=== PATIENT | male | born 1935 | race Caucasian/White ===

== ENCOUNTER → 2016-06-22 | Day surgery (SDC) | payer MEDICARE ==
--- NOTE | 2016-06-18 17:53 | TH ---
cc: DEMI LUCIO M.D. DATE 06/18/16 PROCEDURE TO BE PERFORMED Excision squamous cell carcinoma located on the left posterior ear with tissue arrangement and the correction of the lower eyelid laxity with a canthopexy, canthotomy and canthoplasty. 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 He had an aggressive resection back in September of last year, although we had a positive margin we were very conservatively watching until this finally appeared. Since then, the patient had a stroke and had developed significant laxity in the lower eyelid to the point that the cornea now has been ___ exposed. PAST MEDICAL HISTORY 1. Cardiomyopathy status post open heart surgery in 2014 2. Appendectomy at the time MEDICATIONS 1. Allopurinol 2. Loratadine 3. The patient has been off of coumadin. She is on alternative Lovenox 4. 5. Lasix 6. Gabapentin 7. Spiriva 8. Advair 9. Multivitamins 10. Famotidine 11. Aspirin. REVIEW OF SYSTEMS Otherwise unremarkable and noncontributory. PHYSICAL EXAMINATION CONSTITUTIONAL: General appearance. The patient is a well-developed in no acute distress. Body habitus is within normal limits. There appear to be no deformities. Appears to have attention to grooming. HEENT: The patient does have significant laxity in the left lower eyelid with significant canthal pull. The posterior ear the lower third shows about 1.5 centimeters to 2 centimeters squamous cell carcinoma. Eyes Conjunctivae and lids are within normal anatomical limits. The pupils are reactive to light and accommodation, size, and symmetry. There is no evidence of exudate, hemorrhage, or vessel change. Ears, mouth, nose, and throat The external inspection of the ears and nose fails to demonstrate any pathology, scars, lesions, or masses. Nasal mucosa, septum, and turbinates appear to be well hydrated as well as the lips and gums. No evidence of masses in the hypopharynx or submental area. RESPIRATORY: The patient shows no evidence of intercostal refractions. Otherwise, lungs are clear to auscultation without any abnormal sounds or rubs. CARDIOVASCULAR: The patient has a normal heart rate and rhythm. There is no evidence of noticed carotid bruits. Femoral pulses and pedal pulses in extremities are also within normal limits. GASTROINTESTINAL/ABDOMEN: Soft with no evidence of masses or tenderness. Unable to palpate the liver or spleen. No evidence of hernia. MUSCULOSKELETAL: Appears to be reasonable range of motion on the head, neck, spine, ribs, pelvis, right upper extremity, left upper extremity, right lower extremity, and left lower extremity. The muscle strength and tone appears to be equal and within accepted limits. SKIN: There is no rashes, lesions, or ulcers on the trunk, back, and extremities. NEUROLOGICAL: Examination is grossly normal. PSYCHIATRIC: The patient appears to have good orientation of time, place, and person. Does not appear to have any mood effects of depression, anxiety, or agitation. PLAN To do an excision, frozen section, flap construction and also a canthotomy, cantholysis and probably resection of the lower canthal with a canthopexy. MD LELO Wang/ /3:48 PM /5:29 PM
[~2016-06-22] MED LIST: ACETAMINOPHEN 1000 MG/100 ML VIAL IV ONE; ACETAMINOPHEN/HYDROcodone 325 MG/5 MG TAB ONE; BALANCED SALT SOLN OPHT IRRIG 15 ML BTL ONE; BUPIVACAINE/EPINEPHRINE 0.25% PF 30 ML VIAL ONE; LACTATED RINGER'S 1000 ML INJ 1,000 ML ONE; LIDOCAINE 1%/EPINEPHrine 1:100,000 SOLN 20 ML VIAL ONE; MIDAZOLAM HCL 2 MG/2 ML VIAL ONE; NEOMYCIN/POLYMYXIN/BACITRACIN OINT 15 GM TUBE ONE; NEOMYCIN/POLYMYXIN/HYDROCORT OTIC SUSP 10 ML BTL ONE; PROPOFOL 200 MG/20 ML AMP IV ONE; ceFAZolin INJ 1,000 MG VIAL ONE
--- NOTE | 2016-06-22 13:32 | TN ---
cc: RUI ZACARIAS M.D. DATE OF SURGERY 06/22/2016 PREOPERATIVE DIAGNOSES 1. Squamous cell carcinoma, located on posterior aspect of the left ear. 2. Ptotic lower eyelid, significant laxity, scleral show, irritation. PROCEDURE 1. Excision of squamous cell carcinoma located in the posterior ear, required frozen section with further 12 o'clock positive margins which required a kev-resection of the ear, dissection of part of the parotid tail, dissection of significant soft tissue with a primary defect of 5 x 3 cm. This required a myocutaneous flap reconstruction, secondary defect of the 11 x 5 cm. 2. Lateral canthotomy, wedge resection of laxity, tarsal strip canthopexy with placement of a submuscular AlloDerm 2 x 0.5 cm support strip. SURGEON Rui Zacarias MD ANESTHESIA LMA general plus a total of 60 cc of 1% lidocaine with epinephrine. ESTIMATED BLOOD LOSS Minimal. COMPLICATIONS None. OUTSIDE CUTTER HAND Soheila Swenson, MS III OPERATIVE PROCEDURE After proper consent, the area was properly anesthetized and the skin sterilized with Microcyn and sterile draping was applied. Attention was directed to the posterior aspect of the ear where this lesion had now occupied the posterior ear [id number] and kev-auriculectomy had to be performed. I also performed resection of the tail of the parotid and significant soft tissue. Frozen section was inconclusive in a way that there were some positive margins. Further margins were sent for permanent section. It is to be mentioned that we found a cystic area of about 2 cm inferomedial to the ear area where the sac was properly removed. There was a defect of 3 x 5 cm. With the base of this defect and the involvement of the external auricular canal, a myocutaneous flap reconstruction was elevated and rotated into the defect for a second defect of 11 x 5 cm. The area that we used was de-epithelialized. I utilized 2-0 Monocryl suture of 3-0 Prolene to close the donor site and to inset the flap 4-0 chromic suture and 5-0 fast-absorbing gut. The rest of the tissue appeared to be viable and healthy. From there our attention was directed to the lower eyelid left where, after assessing the significant laxity of the lower eyelid, a canthotomy with wedge strip was removed, tarsal strip was elevated and utilizing the inner aspect of the superolateral periosteum, 5-0 clear nylon was utilized with two anchor sutures to secure the new eyelid. To support the eyelid and the weakness, a 2 cm x 0.5 cm AlloDerm support strip was placed underneath the orbicularis oculi muscle and it was tunneled without any difficulties. Closure of the wounds were done utilizing multiple layers of 5-0 fast-absorbing gut and a Acosta stitch was utilized with 6-0 Prolene suture, was secured with Steri-Strips in the forehead. Overall the patient tolerated the procedure well. Soft dressings were applied and, due to the defect on the posterior ear, I brought up a 10-mm Reliavac drain which was secured utilizing 2-0 Monocryl suture. The patient was awakened, extubated in the operating room, transferred back to the Post-Anesthesia Care Unit in stable condition. No complication appreciated. The patient tolerated the procedure fairly well. MD LELO Wang/PAUL /12:50 PM /1:18 PM KASHMIR
== END | disposition home or self-care (01) ==
LOC: ESDC 09:33
PROVIDERS: ATTEND Plastic Surgery
DX: C44.229 Squamous cell carcinoma of skin of left ear and external auricular canal (principal); H02.402 Unspecified ptosis of left eyelid; H57.8 Other specified disorders of eye and adnexa
CPT/HCPCS: 00103; 00300; 11646; 15732; 21282; 67715; 88305; 88331; J0131; J0690; J3010; J7120; Q4100; J2250